=== PATIENT | female | born 1960 | race Caucasian/White ===

== ENCOUNTER 2016-09-23 19:38 | Inpatient (IN) | payer OTHER ==
--- NOTE | ~2016-09-23 | HP ---
History And Physical [facility] [address] [place]. [address] NAME: ELINA RAMIREZ : 60 STATUS : ADM Adolph PAT#: [id number] AGE: 55 ADM/REG DATE : 09/23/16 MR#: [id number] REPORT SERV DATE: 09/24/16 DICTATED BY: DOMENIC ALMARAZ DATE: 09/24/16 REPORT STATUS : Draft TRANSCRIBED BY: MODL DATE: 09/24/16 DATE OF ADMISSION: 09/23/2016 CHIEF COMPLAINT: Nausea, vomiting, diarrhea, and abdominal pain. HISTORY OF PRESENT ILLNESS: This is a 55-year-old female with a history of diabetes mellitus, gastroesophageal reflux disease, and depression, who presents to the emergency room at [facility] with the above-mentioned complaint. History is obtained from the patient, her who is at bedside, and reviewing data available on the magnetic.io system. According to Mrs. Ramirez, she had been in the usual state of health until about four days ago when she started having diarrhea. She describes this as normal color, watery without any blood, occurring many times during the day and then she started having nausea and severe vomiting as well. Again, this was clear to yellowish or bilious, occurred several times without any blood. In the next three days or so, she has been trying to hydrating herself with water, keep food or water down, but she was unable to. She started getting increasingly weak and today, she decided to come to the emergency room. In the emergency room, initial workup revealed she had an acute kidney injury along with intractable nausea and vomiting, requiring intravenous antiemetics. She also had an elevated lipase level. CT of the abdomen and pelvis did not reveal any acute pathology contributing to her symptoms. Hospitalist Service is asked to admit her for further evaluation and treatment. At the time of my evaluation, she denied any chest pain, palpitations, or orthopnea. She had no cough, hemoptysis, night sweats, or weight loss. She has not had any recent falls or loss of consciousness. She had not had any recent fevers, chills, hematemesis, hematochezia, or hematuria. She did have nausea and vomiting along with diarrhea as mentioned above. No other history of recent travel or exposures. PAST MEDICAL HISTORY: Significant for history of diabetes mellitus type 2, gastroesophageal reflux disease, depression. SOCIAL HISTORY: She has about [id number]-ktoc history of smoking and continues to do so. She denies alcohol use or recreational drug use. 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 FAMILY HISTORY: Noncontributory. MEDICATIONS AT HOME: Reviewed by me in the chart today and reordered by me. REVIEW OF SYSTEMS: As in history of present illness. All other systems were reviewed in detail and are quite unremarkable. History And Physical [address] [address] NAME: ELINA RAMIREZ : 60 STATUS : ADM Adolph PAT#: [id number] AGE: 55 ADM/REG DATE : 09/23/16 MR#: [id number] REPORT SERV DATE: 09/24/16 DICTATED BY: DOMENIC ALMARAZ DATE: 09/24/16 REPORT STATUS : Draft TRANSCRIBED BY: ENOCH DATE: 09/24/16 PHYSICAL EXAMINATION: GENERAL: This is a pleasant 55-year-old, who is alert, awake, oriented to time, place, and person. HEENT: Head is atraumatic, normocephalic. Pupils are equal, reacting to light and accommodating. External ocular muscles are intact. Membranes are moist and pink. Sclerae are nonicteric. NECK: Supple with no jugular venous distention, lymphadenopathy, or thyromegaly. LUNGS: Clear to auscultation with no wheezes, rubs, or crackles. HEART: Heart sounds were regular with no murmurs, rubs, or gallops. ABDOMEN: Soft. There is some tenderness in the epigastric and right and left upper quadrant areas. There was no organomegaly. There was no guarding or rigidity. Bowel sounds are present. EXTREMITIES: Showed no cyanosis, clubbing, or edema. NEUROLOGIC: Grossly intact. No focal sensory or motor deficits. Higher functions appeared intact. She was able to move all four extremities. VITAL SIGNS: Today showed a temperature of 97.8, pulse 120, respirations 18 a minute, blood pressure was 118/75, oxygen saturations were 94%, breathing 2 L of oxygen via nasal cannula. LABORATORY DATA: Reviewed on the magnetic[employer]io system showed sodium of 136, potassium 3.5, chloride 100, and CO2 of 23. BUN was 50 with a creatinine of 2.32, which has gone up from baseline of 0.7 to 0.8. Her GFR was 23 and glucose was 110. Her total bilirubin was 0.4, alkaline phosphatase was 86, ALT 46, and AST was 35. Lipase was elevated at 783 today. Her lactate was 0.8 today. CBC showed a normal white blood cell count, hemoglobin and hematocrit were 18.2 and 50.0. MCV was 85.8 and platelet count was 308,000. Urinalysis was negative for leukocyte esterase. Nitrite was negative. There were 10 wbc's and few bacteria. CT scan of the abdomen and pelvis did not reveal any acute intraabdominal pathology. Official Radiology report was reviewed and the Radiology's reports status post cholecystectomy, small hiatal hernia, mild diverticulosis, no diverticulitis. There is also asymmetrical prominence of the left ovarian complex of uncertain clinical significance. It is recommended to follow ups scheduled outpatient nonemergent pelvic ultrasound for further characterization. IMPRESSION: 1. Intractable nausea and vomiting. 2. Diarrhea. 3. Acute kidney injury. 4. Acute pancreatitis. 5. Diabetes mellitus type 2. 6. Gastroesophageal reflux disease. 7. Depression. 8. Tobacco use. PLAN: We will admit Ms. Ramirez to the Hospitalist Service to the med/surg telemetry for close monitoring. We will keep her n.p.o. or clear liquids if she can tolerate, start her on aggressive fluid replacement therapy. We will provide Zofran and Phenergan for symptoms of nausea and vomiting, and offer pain control with intravenous Dilaudid on an as-needed basis. We will go ahead and consult Gastroenterology Service to see her in the morning. History And Physical [address] [address] NAME: ELINA RAMIREZ : 60 STATUS : ADM Adolph PAT#: [id number] AGE: 55 ADM/REG DATE : 09/23/16 MR#: [id number] REPORT SERV DATE: 09/24/16 DICTATED BY: DOMENIC ALMARAZ DATE: 09/24/16 REPORT STATUS : Draft TRANSCRIBED BY: MODIliana DATE: 09/24/16 She will be on blood sugar control with NovoLog given subcutaneously per sliding scale as well. We will provide unfractionated heparin for DVT prophylaxis at this time. Check her chemistry, electrolytes, and CBC along with lipase in the morning again. I have discussed the above plans with the patient and her . Questions were answered and they are agreeable to the above recommendations. Hospitalist Service will be following her during her stay here. /ENOCH Domenic Almaraz M.D. / [id number] CC: MD Dayna Quijano M.D.
--- NOTE | ~2016-09-23 | DS ---
Discharge Summary [facility] [address] [facility] [place]. [address] NAME: ELINA RAMIREZ : 60 STATUS : DIS IN PAT#: [id number] AGE: 55 ADM/REG DATE : 09/23/16 MR#: [id number] REPORT SERV DATE: 09/26/16 DICTATED BY: FRIDA GIBBONS DATE: 09/25/16 REPORT STATUS : Draft TRANSCRIBED BY: MODL DATE: 09/25/16 ADMISSION DATE: 09/23/2016 DISCHARGE DATE: 09/25/2016 DISCHARGE DIAGNOSES: 1. Acute diarrhea, improved, resolved. The patient is tolerating diet without any problem, having normal bowel movement. 2. Acute kidney injury, improved and back to normal. 3. Diabetes mellitus. 4. Obesity. HISTORY OF PRESENT ILLNESS: This is a 55-year-old female patient, who came to the hospital with acute-onset of intractable nausea, vomiting, and diarrhea. Please see dictated H and P done by Dr. Barnett. HOSPITAL COURSE: She was admitted to the hospital with acute kidney injury with acute diarrhea. She had a normal CT scan of the abdomen and pelvis. Her exam came back negative for C. diff colitis. She is much improved with just hydration. She is not on any treatment for any other acute illness. It resolved on its own and she is tolerating diet without any problem, having normal bowel movement today and ambulating without any problem. The patient will be discharged to home since she maximized inpatient benefit. DISCHARGE MEDICATION: Same as home medication. DISPOSITION: The patient is discharged home in stable condition. Need to follow up with primary care physician within a week. EKL/MODL Frida Gibbons M.D. / [id number] CC: Suraj Mcclure M.D.
[~2016-09-23 19:38] MED LIST: BIEST TOP; DHE1 OR; VOLT75 PO; ZOCOR20 PO
[2016-09-23 21:30] LABS: ASCORBIC ACID (UR NOT ORDER) NEG (NEG); BILIRUBIN, URINE NEGATIVE (NEG); ER URINALYSIS TAT 0 Hrs 21 Mins; KETONE, URINE TRACE MG/DL (NEG); LEUKOCYTE ESTERASE(NOT OR NEG (NEG); NITRITE (URINE) NEG (NEG); WBC (NOT ORDERED) (RFLEX) 10 (0-5)
[2016-09-23 21:38] LABS: BASOPHILS 0.5 %; BASOPHILS ABSOLUTE 0.04 10/3/uL (0.0-0.16); EOSINOPHILS 0 %; HEMOGLOBIN 18.2 g/dL (12.0-16.0); IMMATURE GRANULOCYTES 0.1 %; IMMATURE GRANULOCYTES ABSOLUTE 0.01 10/3/uL (0.0-0.11); LYMPHOCYTES 37.5 %; LYMPHOCYTES ABSOLUTE 2.77 10/3/uL (0.67-4.30); MEAN CORPUSCULAR HEMOGLOB 31.2 pg (26.0-34.0); MEAN PLATELET VOLUME 8.9 fL (9.2-13.0); MONOCYTES 10.3 %; MONOCYTES ABSOLUTE 0.76 10/3/uL (0.21-1.20); NEUTROPHILS 51.6 %; PLATELET COUNT 308 10/3/uL (150-400); RBC DISTRIBUTION WIDTH 12.9 % (12.0-16.0); RED CELL COUNT 5.83 10/6/uL (4.0-5.6); WHITE BLOOD CELLS 7.4 10/3/uL (4.5-10.5)
[2016-09-23 21:39] LABS: MANUAL DIFF NO %; MEAN CORPUS HGB CONC 36.4 g/dL (32.0-36.0); MEAN CORPUSCULAR VOLUME 85.8 fL (80-100)
[2016-09-23 21:44] LABS: A/G RATIO 0.9 (0.7-1.9); ALBUMIN 4.1 G/DL (3.5-5.0); ALKALINE PHOSPHATASE 86 U/L (45-117); CHLORIDE, SERUM 100 MMOL/L (96-112); POTASSIUM, SERUM 3.5 MMOL/L (3.5-5.3); SGOT(AST) 35 U/L (5-40); SGPT(ALT) 46 U/L (5-65); SODIUM, SERUM 136 MMOL/L (135-148); TOTAL BILIRUBIN 0.4 MG/DL (0-1.2)
[2016-09-23 21:45] LABS: BUN (BLOOD UREA NITROGEN) 50 MG/DL (6-23); CO2 (CARBON DIOXIDE) 23 MMOL/L (24-34); CREATININE 2.32 MG/DL (0.55-1.02); GFR AFRICAN AMERICAN 27 ML/MIN (>=60); GFR NON AFRICAN AMERICAN 23 ML/MIN (>=60); GLOBULIN 4.6 G/DL (2.5-4.1); GLUCOSE, SERUM 110 MG/DL (60-99); TOTAL PROTEIN 8.7 G/DL (6.0-8.5)
[2016-09-23 22:01] LABS: ER DIFF TAT 0 Hrs 40 Mins; LYMPHOCYTES 33 %; LYMPHOCYTES ABSOLUTE (CALC) 2.44 10/3/uL (0.67-4.30); MONOCYTES 7 %; MONOCYTES ABSOLUTE (CALC) 0.52 10/3/uL (0.21-1.20); NEUTROPHILS ABSOLUTE (CALC) 4.44 10/3/uL (2.02-8.40); SEGMENTED NEUTROPHIL (0) 60 %; TOTAL NUCLEATED CELLS 100
[2016-09-23 22:09] LABS: ATYPICAL LYMPH OCC (0-2%) (0-5%); PLATELET ESTIMATE ADQ (ADEQUATE)
[2016-09-24] MEDS ORDERED: ZOL100 PO (00:19)
[2016-09-24] MEDS ORDERED: ZOCOR20 PO (00:19)
[2016-09-24] MEDS ORDERED: PRILOSEC40 MG PO (00:19)
[2016-09-24] MEDS ORDERED: PERCOCET 10/3251 TAB PO (00:19)
[2016-09-24] MEDS ORDERED: SINGULAIR1 PO (00:19)
[2016-09-24] MEDS ORDERED: NEUR600 PO (00:19)
[2016-09-24] MEDS ORDERED: ZYRTEC ALLGY10 MG PO (00:19)
[2016-09-24] MEDS ORDERED: ZANAFLEX 4 MG TA4 MG PO (00:20)
[2016-09-24] MEDS ORDERED: CENTRUM PO (00:20)
[2016-09-24 06:24] LABS: BASOPHILS 0.6 %; BASOPHILS ABSOLUTE 0.04 10/3/uL (0.0-0.16); EOSINOPHILS 0 %; HEMOGLOBIN 15.5 g/dL (12.0-16.0); IMMATURE GRANULOCYTES 0.1 %; IMMATURE GRANULOCYTES ABSOLUTE 0.01 10/3/uL (0.0-0.11); LYMPHOCYTES 46.7 %; LYMPHOCYTES ABSOLUTE 3.15 10/3/uL (0.67-4.30); MEAN CORPUS HGB CONC 36.6 g/dL (32.0-36.0); MEAN CORPUSCULAR HEMOGLOB 31.6 pg (26.0-34.0); MEAN CORPUSCULAR VOLUME 86.3 fL (80-100); MEAN PLATELET VOLUME 8.8 fL (9.2-13.0); MONOCYTES 13.6 %; MONOCYTES ABSOLUTE 0.92 10/3/uL (0.21-1.20); NEUTROPHILS ABSOLUTE 2.62 10/3/uL (2.02-8.40); PLATELET COUNT 261 10/3/uL (150-400); RBC DISTRIBUTION WIDTH 12.7 % (12.0-16.0); WHITE BLOOD CELLS 6.7 10/3/uL (4.5-10.5)
[2016-09-24 06:25] LABS: HEMATOCRIT 42.3 % (36.0-48.0); MANUAL DIFF NO %
[2016-09-24 06:30] LABS: CALCIUM, SERUM 8.1 MG/DL (8.5-10.4); CHLORIDE, SERUM 106 MMOL/L (96-112); CO2 (CARBON DIOXIDE) 20 MMOL/L (24-34); PHOSPHORUS, SERUM 2.9 MG/DL (2.5-4.5); POTASSIUM, SERUM 3.3 MMOL/L (3.5-5.3); SODIUM, SERUM 138 MMOL/L (135-148)
[2016-09-24 06:32] LABS: BUN (BLOOD UREA NITROGEN) 41 MG/DL (6-23); CREATININE 1.51 MG/DL (0.55-1.02); GFR AFRICAN AMERICAN 45 ML/MIN (>=60); GFR NON AFRICAN AMERICAN 39 ML/MIN (>=60); GLUCOSE, SERUM 83 MG/DL (60-99)
[2016-09-24 07:11] LABS: HYPOCHROMIA 1+ (3-10/OIF) (0-2/OIF); PLATELET ESTIMATE ADQ (ADEQUATE)
[2016-09-25 04:58] LABS: HEMOGLOBIN 13.5 g/dL (12.0-16.0); MEAN CORPUS HGB CONC 35.9 g/dL (32.0-36.0); MEAN CORPUSCULAR HEMOGLOB 31.5 pg (26.0-34.0); MEAN CORPUSCULAR VOLUME 87.9 fL (80-100); MEAN PLATELET VOLUME 8.4 fL (9.2-13.0); PLATELET COUNT 212 10/3/uL (150-400); RED CELL COUNT 4.28 10/6/uL (4.0-5.6); WHITE BLOOD CELLS 6.4 10/3/uL (4.5-10.5)
[2016-09-25 04:59] LABS: HEMATOCRIT 37.6 % (36.0-48.0); MANUAL DIFF YES %
[2016-09-25 05:15] LABS: BUN (BLOOD UREA NITROGEN) 23 MG/DL (6-23); CALCIUM, SERUM 8.2 MG/DL (8.5-10.4); CHLORIDE, SERUM 114 MMOL/L (96-112); CO2 (CARBON DIOXIDE) 19 MMOL/L (24-34); CREATININE 1.06 MG/DL (0.55-1.02); GFR AFRICAN AMERICAN 68 ML/MIN (>=60); GFR NON AFRICAN AMERICAN 59 ML/MIN (>=60); GLUCOSE, SERUM 81 MG/DL (60-99); POTASSIUM, SERUM 3.9 MMOL/L (3.5-5.3); SODIUM, SERUM 144 MMOL/L (135-148)
[2016-09-25 05:27] LABS: EOSINOPHILS 2 %; EOSINOPHILS ABSOLUTE (CALC) 0.13 10/3/uL (0.0-0.53); LYMPHOCYTES 43 %; LYMPHOCYTES ABSOLUTE (CALC) 2.75 10/3/uL (0.67-4.30); MONOCYTES 10 %; MONOCYTES ABSOLUTE (CALC) 0.64 10/3/uL (0.21-1.20); NEUTROPHILS ABSOLUTE (CALC) 2.88 10/3/uL (2.02-8.40); SEGMENTED NEUTROPHIL (0) 45 %; TOTAL NUCLEATED CELLS 100
[2016-09-25 05:28] LABS: PLATELET ESTIMATE ADQ (ADEQUATE); RBC MORPHOLOGY NORM (NORMAL)
== END 2016-09-25 15:45 | disposition home or self-care (01) | DRG 683 ==
LOC: ER 19:38 → 7NO 23:59
PROVIDERS: Internal Medicine Pulmonary Disease; Nurse Practitioner Acute Care; Nurse Practitioner Family
DX: N17.9 Acute kidney failure, unspecified (principal); Z68.41 Body mass index [BMI] 40.0-44.9, adult; E11.9 Type 2 diabetes mellitus without complications; K21.9 Gastro-esophageal reflux disease without esophagitis; F32.9 Major depressive disorder, single episode, unspecified; F17.210 Nicotine dependence, cigarettes, uncomplicated; E66.9 Obesity, unspecified; R19.7 Diarrhea, unspecified
CPT/HCPCS: 71010; 74176; 80048; 80053; 81001; 82150; 82962; 83605; 83690; 83735; 84100; 85025; 87045; 87046; 87046-59; 87493; 87493-59; 87899; 87899-59; 89055; 90686; 93005; 94640; 96374; 99285; A9270-GY; G0008; J1980; J2405